=== PATIENT | female | born 1990 | race Caucasian/White ===

== ENCOUNTER 2019-04-20 14:06 | Emergency (ER) | payer OTHER ==
[~2019-04-20] VITALS: Ht 154.9 cm; Wt 70.3 kg
[2019-04-20 14:12] VITALS: BP 124/74
--- NOTE | 2019-04-20 14:17 | NUR ---
PT AMB TO BED 9 WITH STEADY GAIT
--- NOTE | 2019-04-20 14:25 | NUR ---
PT BIB SELF TO THE ED WITH THE CHIEF C/O HEADACHE AND NECK STIFFINESS RADIATING TO BOTH SHOULDERS FOR A MONTH. PT ALSO REPORTS BOTH EAR PAIN AT THIS TIME. NO DISCHARGE OR SWELLING NOTED ON BOTH EARS. DENIES ANY FALL. DENIES DIZZINESS. DENIES N/V/D. DENIES MEDICAL HX. STATES HEADACHE OF 5/10 AT THIS TIME.
--- NOTE | 2019-04-20 14:52 | NUR ---
PT BEING EVALUATED BY ER AT THIS TIME.
[2019-04-20] MEDS ORDERED: ACETAMINOPHEN EXTRA STRENGTH 500 MG TAB PO ONE (15:10)
[2019-04-20] MEDS ORDERED: METOCLOPRAMIDE 10 MG/2 ML INJ VIAL IVP ONE (15:10)
[2019-04-20 15:33] LABS: BASOPHILS % (AUTO) 0.4 % (0.0-2.0); EOSINOPHILS # (AUTO) 0.2 K/uL (0-0.4); HEMATOCRIT 37.6 % (36-48); HEMOGLOBIN 12.9 g/dL (12.0-16.0); LYMPHOCYTES # (AUTO) 1.8 K/uL (2.5-16.5); LYMPHOCYTES % (AUTO) 21.1 % (20.5-51.1); MEAN CORPUSCULAR HEMOGLOBIN 30 pg (27-31); MEAN CORPUSCULAR HGB CONC 34 g/dL (33-37); MEAN CORPUSCULAR VOLUME 88.4 fL (80-94); MONOCYTES # (AUTO) 0.6 K/uL (0.8-1.0); MONOCYTES % (AUTO) 7.5 % (1.7-9.3); NEUTROPHILS # (AUTO) 5.8 K/uL (1.8-7.7); PLATELET COUNT (AUTO) 262 K/uL (140-450); RED BLOOD CELL COUNT(AUTO) 4.25 MIL/uL (4.20-5.40); RED CELL DISTRIBUTION WIDTH 12.5 % (11.6-13.7); WHITE BLOOD COUNT (AUTO) 8.4 K/uL (4.8-10.8)
[2019-04-20 15:43] LABS: ANION GAP 10.9 (8-16); CREATININE 0.7 mg/dL (0.6-1.3); POTASSIUM 3.9 mmol/L (3.5-5.1)
[2019-04-20 15:49] LABS: ALBUMIN 3.6 g/dL (3.4-5.0); TOTAL BILIRUBIN 0.3 mg/dL (0.0-1.0)
[2019-04-20 18:09] VITALS: BP 114/67
--- NOTE | 2019-04-20 18:09 | NUR ---
Patient discharged with v/s stable. Written and verbal after care instructions given and explained. Patient alert, oriented and verbalized understanding of instructions. Ambulatory with steady gait. All questions addressed prior to discharge. ID band removed. Patient advised to follow up with PMD. Rx of norco and ibuprofen given. Patient educated on indication of medication including possible reaction and side effects. Opportunity to ask questions provided and answered.
== END 2019-04-20 18:10 | disposition home or self-care (01) ==
LOC: MED 14:06
DX: M54.2 Cervicalgia (principal); M25.511 Pain in right shoulder; M25.512 Pain in left shoulder
CPT/HCPCS: 36415; 70460; 70491; 71045; 80053; 81025; 84484; 85025; 93005; 96374; 99284; J2765